=== PATIENT | female | born 1965 | race African-American/Black ===

== ENCOUNTER 2021-05-20 16:10 | Emergency (ER) | payer MEDICAID ==
[~2021-05-20] VITALS: Ht 167.6 cm; Wt 61.0 kg
[2021-05-20 17:20] VITALS: BP 128/86
== END 2021-05-20 17:21 | disposition home or self-care (01) ==
LOC: ER 16:10
DX: S92.912A Unspecified fracture of left toe(s), initial encounter for closed fracture (principal); Z88.1 Allergy status to other antibiotic agents; W01.0XXA Fall on same level from slipping, tripping and stumbling without subsequent striking against object, initial encounter; Y93.89 Activity, other specified; Y92.89 Other specified places as the place of occurrence of the external cause; Y99.8 Other external cause status
CPT/HCPCS: 73630; 99283; Z7610